=== PATIENT | female | born 1970 | race African-American/Black ===

== ENCOUNTER 2016-07-15 16:37 | Emergency (ER) | payer MEDICARE, MEDICAID ==
[2016-07-15 16:50] VITALS: TEMP 100.5; BMI 40.0
[2016-07-15] MEDS ORDERED: NS 1,000 ML IV ONE ×2 (17:50→17:58)
--- NOTE | 2016-07-15 17:57 | EDPRACDOC ---
- General Information Chief Complaint: Generalized Weakness Stated Complaint: WEAKNESS, DIARRHEA Time Seen by Provider: 07/15/16 17:37 Information Source: Patient Home Medications: Home Medications Baclofen 40 mg PO TID 03/28/13 Fluoxetine [Prozac] 20 mg PO DAILY 03/28/13 Oxybutynin [Ditropan] 5 mg PO BID 03/28/13 Propranolol HCl [Inderal] 20 mg PO BID 03/28/13 Primidone [Mysoline] 50 mg PO TID 09/01/13 Vitamins, Multiple [Unicap] 1 cap PO DAILY 09/01/13 Ciprofloxacin HCl [Cipro] 500 mg PO BID #20 tab 07/15/16 Diphenoxylate HCl/Atrop Sulf [Lomotil Tablet] 2 each PO QID PRN #30 tablet 07/15 Nystatin 1 applic TOP BID 07/15/16 Prednisone [Sterapred 10 mg/6 day pack] 21 tab PO DIR #1 pack 07/15/16 Tizanidine HCl 2 mg PO .SEE COMMENTS 07/15/16 Trimethoprim 100 mg PO DAILY 07/15/16 Allergies/Adverse Reactions: Allergies Allergy/AdvReac Type Severity Reaction Status Date / Time No Known Allergies Allergy Verified 07/15/16 16:50 - History of Present Illness Onset: 1 WEEK Exact Onset of Symptoms: Unknown HPI: PT PRESENTS WITH PROGRESSIVE WEAKNESS WITH DIARRHEA AFTER BOWEL PREP LAST WEEK. THERE IS AN ASSOCIATED FEVER TO 100.5 NOW. SHE WAS ADMITTED TO [facility] LAST WEEK TO HAVE BOWEL PREP AND COLONOSCOPY BUT IT WAS UNABLE TO BE PERFORMED BECAUSE OF SYMPTOMATOLOGY. NOW SHE IS HAVING MUSCLE CRAMPING AND GENERALIZED WEAKNESS. SHE HAS MS. LAST TIME REQUIRING STEROIDS WAS IN MARCH. Symptoms began: Gradually Duration: Since Onset Symptoms Currently: Reports: Still Present ED Past Medical History - History Reviewed Yes Nurses notes reviewed and agree except as marked - Patient Medical History Neurological History: Reports: Multiple Sclerosis Psychological History: Denies: Depression Systemic History: Denies: Cancer - Family Medical History Reports: Diabetes (GRANDMA), Cancer (MOTHER- BREAST CA), Cardiac Disorders ( GRANDMA) - Social Medical History Smoking Status: Never smoker Lives With: Family Lives In: Home EDM Review of Systems - Review of Systems ROS Negative Except as Marked: Yes All systems reviewed and were negative except as marked Constitutional: Fever, Fatigue, Weakness Nose: negative: Congestion, Discharge Respiratory: negative: Cough, Shortness of Breath Cardiovascular: negative: Chest Pain Gastrointestinal: Diarrhea. negative: Nausea, Pain, Vomiting Musculoskeletal: Hand (MUSCLE CRAMPS TO HANDS.) - Physical Exam Constitutional: Alert Oriented to: Time, Person, Place Last recorded Vital Signs: Last Vital Signs Temp 100.5 F 07/15/16 16:43 Pulse 82 07/15/16 17:18 Resp 18 07/15/16 17:18 BP 120/79 07/15/16 17:18 Pulse Ox 99 07/15/16 16:43 Oxygen Pulse Oxygen Saturation 99 O2 Device Room Air Oxygen Flow Rate Fraction of Inspired Oxygen ( FIO2) - HEENT Head: negative: Deformity, Laceration Eye Exam: negative: Conjunctival Injection, Pale Conjunctiva Oropharynx: Membranes Dry Nose: negative: Congestion, Discharge - Respiratory/Cardiovascular Respiratory: Normal - CTA. negative: Accessory Muscle Use, Diminished, Tachypnea Cardiovascular: negative: Bradycardia, Tachycardia, Irregular - GI Auscultation: Normal Palpation: Normal Tenderness: Non tender - Musculoskeletal Extremities: Radial Pulse (PALPABLE) Musculoskeletal Comment: BILATERAL HAND CRAMPS. - Integumentary Skin: Warm, Dry - Neurologic Memory Impaired: Normal Motor Function: Normal Mood Description: Anxious, Appropriate Perception: Normal - Re-evaluation Re-evaluation 1 Re-evaluation Time: 21:48 PT IS WHEELCHAIR BOUND AT BASELINE. SHE IS ABLE TO MOVE HANDS AND ARMS IN THE MANNER NECESSARY TO USE HER ELECTRIC SCOOTER. WILL PLACE ON ANTIBIOTICS AND STEROID TAPER TO HELP WITH SYMPTOMS. Re-evaluation 2 Re-evaluation Time: 22:30 SPOKE WITH FAMILY AND PATIENT AT LENGTH ABOUT SYMPTOMS AND TREATMENT. AFTER INITIALLY ASKING FOR TRANSFER TO [facility], WHEN TOLD THERE WERE NO NEUROLOGY BEDS AND THERE WOULD BE LIKELY LONG ER STAY PRIOR TO TRANSFER IF THEY DID ACCEPT THEY RELENTED ON REQUEST AND ARE AGREEABLE TO DISCHARGE HOME WITH MEDICATIONS FOR UTI & DIARRHEA. - Results 07/15/16 18:54 07/15/16 18:54 - EKG EKG #1 EKG Time: 17:09 -: Yes EKG interpreted by me Rate: bpm: 87 Rhythm: NSR Block: None ST: Nonsp - Focused CV Perfusion Exam Re-evaluation 1 Vital Signs: Last Vital Signs Temp 100.5 F 07/15/16 16:43 Pulse 78 07/15/16 19:11 Resp 07/15/16 19:11 BP 133/74 07/15/16 19:11 Pulse Ox 99 07/15/16 19:11 Re-evaluation 2 Vital Signs: Last Vital Signs Temp 100.5 F 07/15/16 16:43 Pulse 82 07/15/16 21:29 Resp 18 07/15/16 21:29 BP 121/62 07/15/16 21:29 Pulse Ox 98 07/15/16 21:29 Decision Time to Discharge: 22:31 - Departure Yes I personally saw and evaluated the patient. Disposition: Home Condition: Stable Final Diagnosis: Attacks of weakness UTI (urinary tract infection) Qualifiers: Urinary tract infection type: site unspecified Hematuria presence: without hematuria Qualified Code(s): N39.0 - Urinary tract infection, site not specified Instructions: Weakness (General), Urinary Tract Infection in Women (ED) Education/Counseling Given To: Patient, Family Member Education/Counseling Given Regarding: Diagnosis, Treatment, Prognosis, Follow Up Referrals: Renee Randall DO [Primary Care Provider] - Call for Appointment Prescriptions: Ciprofloxacin HCl [Cipro] 500 mg PO BID #20 tab Diphenoxylate HCl/Atrop Sulf [Lomotil Tablet] 2 each PO QID PRN #30 tablet PRN Reason: Diarrhea Prednisone [Sterapred 10 mg/6 day pack] 21 tab PO DIR #1 pack
--- NOTE | 2016-07-15 18:25 | DIRPT ---
CLINICAL DATA: Progressive weakness and diarrhea after a bowel prep last week. Fever. EXAM: PORTABLE CHEST 1 VIEW COMPARISON: 03/28/2013. FINDINGS: Trachea is midline. Right IJ power fourth tip projects over the low SVC. Heart size normal. Lungs are clear. No pleural fluid. IMPRESSION: No acute findings. Electronically Signed By: Marni Kirkland M.D. On: 07/15/2016 18:20
[2016-07-15 19:17] LABS: AUTOMATED BASOPHIL 1.1 % (0-2); AUTOMATED EOSINOPHIL 1.7 % (0-5); AUTOMATED MONOCYTE 10.9 % (3-10); AUTOMATED NEUTROPHIL 70.3 % (45-76); MPV 8.9 fL (7.4-10.4)
[2016-07-15 19:29] LABS: BLOOD UREA NITROGEN 9 MG/DL (7-17); CALCIUM 9.1 MG/DL (8.4-10.2); CALCULATED OSMOLALITY 268 MOs/Kg (270-290); CHLORIDE 105 mEq/L (98-107); CPK TOTAL WITH POSSIBLE MB 265 IU/L (30-134); GLUCOSE 111 MG/DL (70-99); SODIUM LEVEL 139 mEq/L (137-146); TOTAL PROTEIN 7.6 G/DL (6.3-8.2)
[2016-07-15 19:33] LABS: PARTIAL THROMB. TIME 30.7 SEC (22-35); PT-INR 1.1
[2016-07-15 19:38] LABS: LEUKOCYTES/URINE NEG (NEGATIVE); NITRITE/URINE NEG (NEGATIVE); URINE OCCULT BLOOD NEG (NEG/TRACE)
[2016-07-15 19:45] LABS: CPKMB 1.2 ng/mL (0-4.5)
[2016-07-15] MEDS ORDERED: CEFTRIAXONE 1 GM in D5W 100 ML IV ONE (19:47)
[2016-07-15] MEDS ORDERED: METHYLPREDNISOLONE 125 MG/2 ML VIAL IV ONE (21:49)
[2016-07-15] MEDS ORDERED: HEPARIN 500 UNITS/5 ML (100 UNITS/ML) SYR FLUSH ONE (23:22)
[2016-07-15 23:43] VITALS: BP 126/64; PULSE 68
== END 2016-07-15 23:35 | disposition home or self-care (01) ==
LOC: ED 16:37
DX: N39.0 Urinary tract infection, site not specified (principal); R53.1 Weakness; R19.7 Diarrhea, unspecified
CPT/HCPCS: 36415; 71010; 80053; 81001; 82550; 82553; 83605; 83690; 83735; 85025; 85610; 85730; 87040; 87077; 87086; 87186; 87804; 93005; 96361; 96365; 96375; 99285; J0696; J1642; J2930; J7060